=== PATIENT | female | born 1980 | race Caucasian/White ===

== ENCOUNTER 2017-11-30 07:04 | Emergency (ER) | payer OTHER ==
[~2017-11-30] VITALS: Ht 167.6 cm; Wt 61.2 kg
[2017-11-30] MEDS ORDERED: KETO10TA2 PO (11:37)
[2017-11-30] MEDS ORDERED: NORFLEX100MG PO (11:37)
== END 2017-11-30 12:03 | disposition home or self-care (01) ==
LOC: ER 07:04
DX: R20.2 Paresthesia of skin (principal); R09.81 Nasal congestion; F06.4 Anxiety disorder due to known physiological condition